=== PATIENT | female | born 1970 | race Caucasian/White ===

== ENCOUNTER → 2019-12-08 | Outpatient (CLI) | payer OTHER | LOC: M.RAD 10:27 | PROVIDERS: ATTEND Family Medicine | DX: Z12.31 Encounter for screening mammogram for malignant neoplasm of breast (principal) ==

== ENCOUNTER → 2020-02-19 | Outpatient (CLI) | payer OTHER ==
[2020-02-19 11:50] LABS: ABSOLUTE EOSINOPHILS 0.2 thou/uL (0.0-0.7); ABSOLUTE LYMPHOCYTES 2.2 thou/uL (0.8-5.3); ABSOLUTE MONOCYTES 0.6 thou/uL (0.0-1.2); ABSOLUTE NEUTROPHILS 3.2 thou/uL (1.6-8.1); BASOPHILS 0.8 %; EOSINOPHILS 3.8 %; LYMPHOCYTES 35.1 %; MCHC 34.1 g/dL (28.0-37.0); MCV 87.8 fL (80.0-100.0); MONOCYTES 10.2 %; MPV 7.8 fl. (7.2-11.1); NUCLEATED RBCS 0 /100WBC; PLATELET COUNT* 232 thou/uL (150-400); POLYS 50.1 %; RBC 5.02 mil/uL (4.20-5.00); RDW-CV 13.3 % (10.5-14.5); WBC 6.4 thou/uL (4.0-11.0)
[2020-02-19 11:52] LABS: URINE BILIRUBIN NEGATIVE (Negative); URINE BLOOD NEGATIVE (Negative); URINE CLARITY CLEAR; URINE COLOR YELLOW; URINE GLUCOSE-RANDOM NEGATIVE (Negative); URINE KETONES NEGATIVE (Negative); URINE LEUKOCYTES 1+ (Negative); URINE NITRITE NEGATIVE (Negative); URINE PROTEIN NEGATIVE (Negative); URINE SPECIFIC GRAVITY >= 1.030 (1.005-1.030); URINE UROBILINOGEN 0.2 E.U./dl (0.2-1.0)
[2020-02-19 11:58] LABS: SQUAMOUS 4-10 Moderate /LPF (0-3); URINE WBC 0-5 Rare /HPF (0-5)
[2020-02-19 11:59] LABS: BACTERIA >30 Many /HPF (None Seen); CASTS None Seen /LPF (None Seen); CRYSTALS None Seen /LPF (None Seen); MUCUS 0-3 Light strn/LPF (None Seen); URINE RBC None Seen /HPF (0-2)
[2020-02-19 12:02] LABS: ALKALINE PHOSPHATASE 98 U/L (46-116); ANION GAP 10 mmol/L (7-16); BUN 12 mg/dL (7-18); CALCIUM 9.1 mg/dL (8.5-10.1); CHLORIDE 102 mmol/L (98-107); CHOLESTEROL 183 mg/dL (<200); CO2 27 mmol/L (21-32); CREATININE 1.1 mg/dL (0.6-1.3); GLUCOSE 166 mg/dL (70-99); HDL CHOLESTEROL 53 mg/dL (>40); LDL CHOLESTEROL 63 mg/dL (<100); POTASSIUM 4.5 mmol/L (3.5-5.1); SGOT 23 U/L (15-37); SGPT 54 U/L (30-65); SODIUM 139 mmol/L (136-145); TC:HDL 3.5 Ratio (Not establshd); TOTAL BILIRUBIN 0.5 mg/dL (<0.1-1.0); TOTAL PROTEIN 7.9 g/dL (6.4-8.2); TRIGLYCERIDE 339 mg/dL (<150); VLDL 68 mg/dL (<40)
[2020-02-19 12:05] LABS: SERUM ASSESSMENT Clear
[2020-02-20 02:06] LABS: GLYCOHEMOGLOBIN (HGB A1C) 7.1 % (4.8-5.6)
== END ==
LOC: M.LAB 11:31
PROVIDERS: ATTEND Family Medicine
DX: K76.0 Fatty (change of) liver, not elsewhere classified (principal); R82.90 Unspecified abnormal findings in urine; E78.5 Hyperlipidemia, unspecified; E11.9 Type 2 diabetes mellitus without complications; I10 Essential (primary) hypertension

== ENCOUNTER → 2020-03-11 | Outpatient (CLI) | payer OTHER | LOC: M.ULTRA 09:22 | PROVIDERS: ATTEND Family Medicine | DX: K80.80 Other cholelithiasis without obstruction (principal); K76.0 Fatty (change of) liver, not elsewhere classified ==

== ENCOUNTER → 2020-04-05 | Outpatient (CLI) | payer OTHER | LOC: M.NUC 07:23 | PROVIDERS: ATTEND Family Medicine | DX: K80.20 Calculus of gallbladder without cholecystitis without obstruction (principal); K90.9 Intestinal malabsorption, unspecified ==

== ENCOUNTER → 2020-05-14 | Outpatient (CLI) | payer OTHER ==
--- NOTE | 2020-05-28 08:43 | SLEEP ---
[address] [address] SLEEP STUDY REPORT Name: JOHANNA DEGROOT Room: [facility]#: [id number] Admission: 05/14/20 Attend Phys: Tiago Whitt DO Discharge: Date of : 68 Report #: [id number] THIS REPORT FOR: cc: Tiago Whitt Adam J DO Pervez, Adeel MD ~ This study has been reviewed in its entirety by a board certified sleep specialist DATE OF SERVICE: 05/14/2020 SLEEP STUDY INDICATION FOR SLEEP STUDY: Obstructive sleep apnea/daytime sleepiness/loud disruptive snoring while asleep. INTERPRETATION: Total duration of the study is 493 minutes, out of which the patient was asleep for 473 minutes with an overall sleep efficiency of 95.9%. Sleep onset was rapid, occurring within 4 minutes of lying down in bed. REM onset occurred 158 minutes after sleep onset. N1 sleep duration was 5%, N2 duration was 59%, N3 duration was 21% and the REM duration was 15%. We did record multiple sleep related respiratory events. These included 7 central apneas in addition to 7 obstructive apneas and 76 hypopneas. There were also 34 respiratory effort related arousals recorded. Overall, apnea-hypopnea index is 11.4. Body position data indicates the patient was observed asleep in the supine position for 324 minutes. The rest of the time, the patient was on her sides. Events do appear to be more common when the patient is lying supine. Supine apnea-hypopnea index is 15.2. Mean heart rate was 91. Periodic limb movement index is mildly elevated to 14.6, most limb movements; however, are not associated with arousals. Arousal index overall is mildly elevated to 19.9. We also did record multiple desaturations. Overall, the patient spent 26.8 minutes below an O2 saturation of 90%; however, only 0.2 minutes out of these were spent with an O2 saturation of less than 88%. The rest of this time refers to O2 saturation being in the upper 80s. IMPRESSION: Obstructive sleep apnea with an apnea-hypopnea index of 11.4. There is some positional variation noted. Events are more common when the patient is lying supine. RECOMMENDATIONS: 1. Recommend proceeding to a repeat sleep study for positive [place] [address] SLEEP STUDY REPORT Name: JOHANNA DEGROOT Room: [facility]#: [id number] Admission: 05/14/20 Attend Phys: Tiago Whitt DO Discharge: Date of : 68 Report #: [id number] 2. While doing the next sleep study, we will ask the patient to also lay supine, so that she could be corrected in that position. At home, I would recommend that she should avoid lying supine and lay on sides as much as possible. 3. Clinical correlation is advised regarding consideration of weight loss. 4. Recommend avoiding driving or other activities requiring vigilance if drowsy. This entire sleep study was reviewed by a board certified sleep physician. <ELECTRONICALLY SIGNED> By: Igor Bonilla MD 05/28/20 [id number] Bonilla MD /nt
== END ==
LOC: M.SLEEPLAB 04-03 20:00
PROVIDERS: ATTEND Family Medicine
DX: G47.33 Obstructive sleep apnea (adult) (pediatric) (principal); R53.83 Other fatigue

== ENCOUNTER → 2020-06-24 | Outpatient (CLI) | payer OTHER ==
[~2020-06-24] MED LIST: ACIDOPHILUS1 EAC4 PO; AUGMENTIN 875-1 EACH PO; AZITHROMYCIN500 MG PO; BANOPHEN25 MG PO; BENZONATATE100 MG PO; BROVANA15 MCG/2 M INH; DEXAMETHASONE 44 M1 PO; DULCOLAX5 MG PO; EFFEXOR XR150 MG PO; GLIPIZIDE ER5 MG PO; LIPITOR 20 MG T20 M1 PO; LISINOPRIL2.5 M1 PO; LORATIDINE 10 M10 M1 PO; MAG-AL PLUS SUS30 ML PO; MELATONIN5 M1 PO; MIDODRINE HCL 55 M1 PO; MILK OF MA2400 MG/11 PO; MUCINEX600 MG PO; ONDANSETRON HCL4 M2 PO; PAIN RELIEF650 MG PO; TOPROL XL25 MG PO; VITAMIN C1000 MG PO; ZPAK PO
[2020-06-24 11:26] LABS: ALBUMIN 3.5 g/dL (3.4-5.0); ALKALINE PHOSPHATASE 105 U/L (46-116); ANION GAP 11 mmol/L (7-16); BUN 11 mg/dL (7-18); CALCIUM 8.9 mg/dL (8.5-10.1); CHLORIDE 102 mmol/L (98-107); CO2 24 mmol/L (21-32); GLUCOSE 266 mg/dL (70-99); POTASSIUM 4.6 mmol/L (3.5-5.1); SGOT < 5 U/L (15-37); SGPT 89 U/L (30-65); SODIUM 137 mmol/L (136-145); TOTAL BILIRUBIN 0.7 mg/dL (<0.1-1.0); TOTAL PROTEIN 6.9 g/dL (6.4-8.2)
== END ==
LOC: M.LAB 10:56
PROVIDERS: ATTEND Family Medicine
DX: K76.0 Fatty (change of) liver, not elsewhere classified (principal)

== ENCOUNTER → 2020-11-21 | Outpatient (CLI) | payer OTHER ==
[2020-11-22 00:01] LABS: URINE BILIRUBIN NEGATIVE (Negative); URINE BLOOD NEGATIVE (Negative); URINE CLARITY CLEAR; URINE COLOR YELLOW; URINE GLUCOSE-RANDOM NEGATIVE (Negative); URINE KETONES NEGATIVE (Negative); URINE LEUKOCYTES NEGATIVE (Negative); URINE NITRITE POSITIVE (Negative); URINE PROTEIN NEGATIVE (Negative); URINE SPECIFIC GRAVITY 1.025 (1.005-1.030); URINE UROBILINOGEN 0.2 E.U./dl (0.2-1.0)
[2020-11-22 00:10] LABS: BACTERIA >30 Many /HPF (None Seen); CASTS None Seen /LPF (None Seen); CRYSTALS None Seen /LPF (None Seen); MUCUS 4-6 Moderate strn/LPF (None Seen); SQUAMOUS 4-10 Moderate /LPF (0-3); TRANSITIONAL EPITHEL CELL 0-3 Few /LPF (None Seen); URINE RBC 3-10 Few /HPF (0-2)
== END ==
LOC: M.LAB 23:50
PROVIDERS: ATTEND Family Medicine
DX: R30.0 Dysuria (principal)

== ENCOUNTER 2021-02-23 07:55 | Emergency (ER) | payer OTHER ==
[~2021-02-23] VITALS: Ht 172.7 cm; Wt 95.3 kg
[2021-02-23] MEDS ORDERED: PULMICORT FLEX90 MCG INH (10:41)
[2021-02-23] MEDS ORDERED: DEXAMETHASONE 44 M1 PO (10:41)
[2021-02-23] MEDS ORDERED: ZPAK PO (10:41)
[2021-02-23 10:55] VITALS: BP 144/84
== END 2021-02-23 10:55 | disposition home or self-care (01) ==
LOC: M.ERS 07:55
DX: U07.1 COVID-19 (principal); H92.01 Otalgia, right ear; M54.2 Cervicalgia; R19.7 Diarrhea, unspecified; E11.9 Type 2 diabetes mellitus without complications; I10 Essential (primary) hypertension; E78.5 Hyperlipidemia, unspecified; F32.9 Major depressive disorder, single episode, unspecified; Z90.710 Acquired absence of both cervix and uterus; Z79.2 Long term (current) use of antibiotics; Z79.899 Other long term (current) drug therapy